=== PATIENT | female | born 1975 | race Caucasian/White ===

== ENCOUNTER 2017-05-16 19:27 | Emergency (ER) | payer MEDICAID ==
[~2017-05-16] VITALS: Ht 162.6 cm; Wt 115.0 kg
[~2017-05-16 19:27] MED LIST: [UNRECOGNIZED DRUG - CODE] PO
[2017-05-16 19:30] VITALS: Ht 162.6 cm; Wt 115.0 kg
[2017-05-16] MEDS ORDERED: HYDR12.58 PO (22:25)
[2017-05-16] MEDS ORDERED: LISI20TA11 PO (22:25)
--- NOTE | 2017-05-16 23:14 | RADRPT ---
PROCEDURE: XR Chest. CLINICAL INDICATION: Abdominal pain TECHNIQUE: Single portable view of the chest was obtained COMPARISON: None FINDINGS: The heart is enlarged. The lungs are clear. There is no pleural effusion or pneumothorax. RPTAT: AA IMPRESSION: Mild Cardiomegaly. .Leonard Kay MD, Date Time Electronically viewed and signed by .Leonard Kay MD, MD on 05/16/2017 23:13 .S/
[2017-05-17] MEDS ORDERED: FUROSEMIDE 20 MG TAB PO ONE
--- NOTE | 2017-05-17 00:02 | ERD ---
ER Documentation Chief Complaint Chief Complaint bilateral leg swelling x 5 days HPI 42-year-old woman presents with bilateral lower extremity swelling, abdominal swelling, 1 week. Patient denies previous swelling, but does have a history of hypertension and uses hydrochlorothiazide and lisinopril daily. She denies history of liver disease or congestive heart failure, no orthopnea, no shortness of breath, no chest pain, no headache or blurry vision. Patient denies dysuria or any changes in urinary frequency, denies blood per rectum or melena, no dizziness or loss of consciousness. Patient denies recent travel, no recent new medications, no recent viral URIs or pneumonia. ROS All systems reviewed and are negative except as per history of present illness. Medications Home Meds Active Scripts Furosemide* (Lasix*) 40 Mg Tablet, 40 MG PO DAILY, #10 TAB Prov:ERIKA WREN MD 05/17/17 Hydrochlorothiazide* (Hydrochlorothiazide*) 25 Mg Tab, 25 MG PO BID, #60 TAB Prov:ERIKA WREN MD 05/17/17 Reported Medications Hydrochlorothiazide* (Hydrochlorothiazide*) 12.5 Mg Tablet, 12.5 MG PO QAM, #30 TAB 05/16/17 Lisinopril* (Lisinopril*) 20 Mg Tablet, 20 MG PO DAILY, #30 TAB 05/16/17 Discontinued Reported Medications Acetaminophen/Diphenhydramine (TYLENOL PM EX-STRENGTH GELCAP) 1 Each Tablet, 1 EACH PO HS 06/30/13 Allergies Allergies: Coded Allergies: No Known Allergy (Verified , 05/16/17) PMhx/Soc Obesity, hypertension History of Surgery: Yes ( x3 (2006, 2004, 1990), Tubal Ligation 2006) Anesthesia Reaction: No Hx Neurological Disorder: No Hx Respiratory Disorders: No Hx Cardiac Disorders: Yes (HTN) Hx Psychiatric Problems: No Hx Miscellaneous Medical Probl: No Hx Alcohol Use: Yes (Occasionally) Hx Substance Use: No Hx Tobacco Use: No Smoking Status: Never smoker FmHx Family History: No diabetes Physical Exam Vitals Vital Signs Date Time Temp Pulse Resp B/P Pulse Ox O2 Delivery O2 Flow Rate FiO2 05/17/17 00:38 98.6 79 20 128/71 97 Room Air 05/17/17 00:17 98.6 104 20 111/59 97 Room Air 05/16/17 19:30 98.2 109 20 156/84 100 Physical Exam GENERAL: Well-developed, well-nourished, well-hydrated, in no apparent distress , looks nontoxic in appearance HEENT: Moist mucous membranes, pink conjunctiva, no cervical spine tenderness or step-off deformities, no goiter, no jaundice or icterus, extraocular movements intact without pain. No submandibular induration, and no pharyngeal erythema NEURO: Alert and oriented 3, cranial nerves II through XII intact bilaterally, pupils equal round reactive to light, no focal deficits or facial asymmetry, sensation intact distally Strength 5/5 in upper and lower extremities bilaterally CARDIAC: Tachycardic and regular, no murmurs rubs or gallops LUNGS: Clear bilaterally no wheezing crackles or stridor ABDOMEN: Soft nontender, no guarding, no rigidity, no rebound, no psoas sign no obturator sign. Normoactive bowel sounds SKIN: Warm and dry to touch, no abrasions, contusions, or hematomas, no lacerations, no ecchymosis, no target lesions, and without ulcers EXTREMITIES: No clubbing cyanosis, 3+ pitting edema in the lower extremities bilaterally, calves are bilaterally symmetrical, no Homans sign, no popliteal cord sign. Distal pulses equal and bilateral PSYCH: Normal affect without agitation or irritability Result Diagram: 05/16/17221405/16/172214 Results 24 hrs Laboratory Tests Test 05/16/17 21:35 05/16/17 22:15 Urine Color COLORLESS Urine Clarity CLEAR Urine pH 6.0 Urine Specific [place] 1.004 Urine Ketones NEGATIVEmg/dL Urine Nitrite NEGATIVEmg/dL Urine Bilirubin NEGATIVEmg/dL Urine Urobilinogen NEGATIVEmg/dL Urine Leukocyte Esterase NEGATIVELeu/ul Urine Hemoglobin NEGATIVEmg/dL Urine Glucose NEGATIVEmg/dL Urine Total Protein NEGATIVEmg/dl White Blood Count 13.210^3/ul Red Blood Count 4.1710^6/ul Hemoglobin 10.8g/dl Hematocrit 34.9% Mean Corpuscular Volume 83.7fl Mean Corpuscular Hemoglobin 25.9pg Mean Corpuscular Hemoglobin Concent 30.9g/dl Red Cell Distribution Width 15.4% Platelet Count 88317^3/UL Mean Platelet Volume 9.5fl Neutrophils % 59.6% Lymphocytes % 27.2% Monocytes % 10.2% Eosinophils % 2.1% Basophils % 0.4% Nucleated Red Blood Cells % 0.0/100WBC Neutrophils # 7.810^3/ul Lymphocytes # 3.610^3/ul Monocytes # 1.410^3/ul Eosinophils # 0.310^3/ul Basophils # 0.110^3/ul Nucleated Red Blood Cells # 0.010^3/ul Prothrombin Time 13.0Sec Prothrombin Time Ratio 1.0 INR International Normalized Ratio 0.98 Sodium Level 140mmol/L Potassium Level 3.9mmol/L Chloride Level 102mmol/L Carbon Dioxide Level 27mmol/L Anion Gap 15 Blood Urea Nitrogen 9mg/dl Creatinine 0.73mg/dl Glucose Level 137mg/dl Calcium Level 9.3mg/dl Total Bilirubin 0.2mg/dl Direct Bilirubin 0.00mg/dl Indirect Bilirubin 0.2mg/dl Aspartate Amino Transf (AST/SGOT) 34IU/L Alanine Aminotransferase (ALT/SGPT) 45IU/L Alkaline Phosphatase 113IU/L Troponin I < 0.012ng/ml Total Protein 7.0g/dl Albumin 4.1g/dl Globulin 2.90g/dl Albumin/Globulin Ratio 1.41 Lipase 178U/L Current Medications Medications (Trade) Dose Ordered Sig/Darinel Route PRN Reason Start Time Stop Time Status Last Admin Dose Admin Furosemide (Lasix) 40 mg ONCE ONCE PO 05/17/17 00:00 05/17/17 00:01 DC 05/17/17 00:14 Procedures/MDM IV line was established patient was placed on monitoring and evaluation advisor rhythm strip revealed a sinus tachycardia at 100 bpm with upright P and T waves. Patient was afebrile One view chest x-ray performed, read by me revealed cardiomegaly and bilateral cephalization of vessels consistent with early CHF, no acute infiltrate, no pneumothorax. EKG performed, read by me: Sinus tachycardia at 110 bpm, normal sinus rhythm, normal axis, no acute ST segment changes, narrow QRS complex, with good R-wave progression in precordial leads. CBC and electrolytes are normal, liver function tests were normal, troponin was negative. Urine analysis was negative for infection. I administered furosemide 40 mg p.o. 1 for diuresis. Patient has fluid retention possibly secondary to early new onset CHF due to long time uncontrolled hypertension. She is on a very low-dose of hydrochlorothiazide, and I recommended she increase the dose to 50 mg total daily, which I prescribed along with furosemide 40 mg p.o. daily 10 days. I educated her about reducing sodium chloride intake and increasing her dietary intake of potassium. She understood these instructions and agreed to follow-up with her PMD for continued outpatient management. I did tell her to return if she develops chest pain, dyspnea on exertion, orthopnea, shortness of breath, fever, or palpitations. Differential diagnoses considered, included but not limited to acute coronary syndrome, pulmonary embolism, aortic dissection, abdominal aortic aneurysm, sepsis, stroke, meningitis, encephalitis, pneumonia, appendicitis, cholecystitis , bowel obstruction, pyelonephritis, nephrolithiasis, cystitis, as well as metabolic, hematologic, and electrolyte abnormalities. As well as abscess, cellulitis, fractures, and dislocations. Patient feels much better at this time, and vital signs are normal, symptoms have improved. I did give strict instructions to return to the ED if symptoms continue or worsen, patient will otherwise follow-up with primary care physician. Patient understood instructions and agreed to plan. Disclaimer: Inadvertent spelling and grammatical errors are likely due to EHR/ dictation software use and do not reflect on the overall quality of patient care. Also, please note that the electronic time recorded on this note does not necessarily reflect the actual time of the patient encounter. Departure Diagnosis: Primary Impression: Peripheral edema Additional Impression: CHF (congestive heart failure) Congestive heart failure type: systolic Congestive heart failure chronicity: acute Qualified Code: I50.21 - Acute systolic congestive heart failure Condition: ERIKA Thakkar MD May 17, 2017 00:02
[2017-05-17] MEDS ORDERED: FURO-109 PO (00:15)
[2017-05-17] MEDS ORDERED: HYDR25TA6 PO (00:15)
[2017-05-17 00:38] VITALS: BP 128/71; PULSE 79; RESP 20; TEMP 98.6
== END 2017-05-17 00:39 | disposition home or self-care (01) ==
LOC: E/R 19:27
DX: R60.0 Localized edema (principal); I50.21 Acute systolic (congestive) heart failure; I10 Essential (primary) hypertension; E66.9 Obesity, unspecified; Z68.41 Body mass index [BMI] 40.0-44.9, adult
CPT/HCPCS: 36415; 71010; 80053; 81003; 83690; 84484; 85025; 85610; 93005; Z7502; Z7610